=== PATIENT | female | born 1960 | race Caucasian/White ===

== ENCOUNTER 2017-09-02 06:30 | Emergency (ER) | payer MEDICAID ==
[2017-09-02 07:55] VITALS: BP 142/89
== END 2017-09-02 07:55 | disposition home or self-care (01) ==
LOC: ED 06:30
DX: S20.219A Contusion of unspecified front wall of thorax, initial encounter (principal); V49.9XXA Car occupant (driver) (passenger) injured in unspecified traffic accident, initial encounter; Y93.89 Activity, other specified; Y99.8 Other external cause status; Y92.89 Other specified places as the place of occurrence of the external cause